=== PATIENT | male | born 1980 | race Two or more races ===

== ENCOUNTER 2023-03-10 20:06 | Emergency (ER) | payer MEDICARE ==
[~2023-03-10] VITALS: Ht 172.7 cm; Wt 60.0 kg
[2023-03-10 21:35] VITALS: BP 118/68; PULSE 74; RESP 18; TEMP 98.3
[2023-03-10] MEDS ORDERED: BACTDSB PO (21:40)
[2023-03-10] MEDS ORDERED: CEPH-558 PO (21:40)
[2023-03-10] MEDS ORDERED: SULFAMETHOX/TRIMETH DS 800-160 MG/TABLET PO ONE (21:45)
[2023-03-10] MEDS ORDERED: CEPHALEXIN MONOHYDRATE 500 MG CAPSULE PO ONE (21:45)
== END 2023-03-11 00:13 | disposition home or self-care (01) ==
LOC: EMS 20:07
DX: L03.211 Cellulitis of face (principal); F12.90 Cannabis use, unspecified, uncomplicated
CPT/HCPCS: 99283